=== PATIENT | female | born 1985 | race African-American/Black ===

== ENCOUNTER 2017-02-04 18:31 | Emergency (ER) | payer MEDICAID ==
[~2017-02-04] VITALS: Ht 167.6 cm; Wt 115.0 kg
[~2017-02-04 18:31] MED LIST: DESO1TAB15 PO; IBUP1TAB7 PO; METF-381 PO; TRI NESSA PO
[2017-02-04 18:33] VITALS: BP 124/86; PULSE 76; RESP 18; TEMP 98.6; O2SAT 98
--- NOTE | 2017-02-04 19:41 | PD ---
HPI Chief Complaint: Injury Time Seen by Provider: 19:41 Travel History International Travel<30 days: No Contact w/Intl Traveler<30days: No Traveled to known affect area: No History of Present Illness HPI 31-year-old female came to the emergency room after injuring her left pinky finger when she tripped and try to brace her fall with outstretched hand. Patient says this happened 45 minutes ago. Since then her into finger has been hurting. No history of head injury. Vital signs are stable. [facility] Past Medical History Narrative Medical List of her past medical, surgical, social and family history is reviewed from the nursing note. Cardiovascular Problems: No Diminished Hearing: No Respiratory: No Migraines: Yes ?: Not LMP: 12/2016 : 1 Para: 1 Past Surgical History Gynecologic Surgery: Yes (IUD INSERTED 2006, IN PRESENTLY) Oral Surgery: Yes (TONSILS) Tonsillectomy: Yes Other Surgery: Yes (breast reduction) Social History Alcohol Use: Yes (occas) Tobacco Use: No Substance Use: No Allergies-Medications (Allergen,Severity, Reaction): Coded Allergies: hydromorphone (Unverified Adverse Reaction, Severe, dont like the way it makes me feel, 02/07/17) nifedipine (Unverified Adverse Reaction, Intermediate, jittery during her while taking for migraine proph, 02/06/17) Comments List of her allergies reviewed from the nursing note. Reported Meds & Prescriptions Reported Meds & Active Scripts Active Zofran (Ondansetron HCl) 4 Mg Tab 4 Mg PO Q8HR PRN Ibuprofen 600 Mg Tab 600 Mg PO Q6H PRN Hydrocodone-Acetamin 5-325 mg (Hydrocodone/Acetaminophen) 5 Mg-325 Mg Tablet 5- 325 Mg PO Q6HR PRN Narrative Medication List of her home medications reviewed from the nursing note. Review of Systems Except as stated in HPI: all other systems reviewed are Neg Physical Exam Narrative GENERAL: Awake, alert, moderate distress, obese SKIN: Focused skin assessment warm/dry. HEAD: Atraumatic. Normocephalic. EYES: Pupils equal and round. No scleral icterus. No injection or drainage. ENT: No nasal bleeding or discharge. Mucous membranes pink and moist. NECK: Trachea midline. No JVD. CARDIOVASCULAR: Regular rate and rhythm. No murmur appreciated. RESPIRATORY: No accessory muscle use. Clear to auscultation. Breath sounds equal bilaterally. GASTROINTESTINAL: Abdomen soft, non-tender, nondistended. Hepatic and splenic margins not palpable. MUSCULOSKELETAL: No obvious deformities. No clubbing. No cyanosis. No edema. Left pinky finger is tender to touch in its entirety. Patient is unable to flex it or move it. No significant swelling noticed. NEUROLOGICAL: Awake and alert. No obvious cranial nerve deficits. Motor grossly within normal limits. Normal speech. PSYCHIATRIC: Appropriate mood and affect; insight and judgment normal. Data Data Last Documented VS Orders Orders Hand, Complete ([id number]) (02/04/17 ) Finger ([id number]) (02/04/17 ) Ibuprofen (Motrin) (02/04/17 19:45) Support Splint (02/04/17 20:06) Ed Discharge Order (02/04/17 20:31) Finger Splint (02/04/17 ) [facility] Medical Decision Making Medical Screen Exam Complete: Yes Emergency Medical Condition: Yes Medical Record Reviewed: Yes Differential Diagnosis Finger fracture, metacarpal fracture, sprain Narrative Course 8:09 PM a distal phalanx avulsion fracture is noticed at the base of the phalanx. I've ordered for a finger splint to be applied. Patient will be asked to follow-up with the hand surgeon. Procedures EKG Prior to Arrival: No Diagnosis Primary Impression: Finger fracture Qualified Codes: S62.637A - Displaced fracture of distal phalanx of left little finger, initial encounter for closed fracture Referrals: Milan Sparks MD 1 day Departure Forms: Tests/Procedures, Work Release Enter return to work date: Feb 07, 2017 Additional Instructions: Please call the hand surgeon's office who is name and number been provided to you on this discharge instruction. Keep the splint on at all times and prevented from getting wet. Return to the ER if the condition worsens or any other new concerns. Disposition: 01 DISCHARGE HOME Condition: Stable Laly Smith MD Feb 04, 2017 19:41
[2017-02-04] MEDS ORDERED: IBUPROFEN 800 MG TAB PO ONE (19:45)
--- NOTE | 2017-02-04 20:20 | RADRPT ---
EXAM DATE/TIME: 02/04/2017 19:56 [facility] COMPARISON: No previous studies available for comparison. INDICATIONS : Left fifth digit pain MEDICAL HISTORY : None. SURGICAL HISTORY : None. ENCOUNTER: Initial ACUITY: 1 day PAIN SCORE: 10/10 LOCATION: Left upper extremity FINDINGS: There is fracturing of the proximal posterior base of the fifth distal phalanx best seen on the later al view. The fracture extends into the DIP joint. CONCLUSION: Fracturing of the proximal posterior aspect of the fifth distal phalanx. Patricio Kothari MD on February 04, 2017 at 20:17 Board Certified Radiologist. This report was verified electronically.
--- NOTE | 2017-02-04 20:23 | RADRPT ---
EXAM DATE/TIME: 02/04/2017 19:58 [facility] COMPARISON: No previous studies available for comparison. INDICATIONS : Left fifth digit pain MEDICAL HISTORY : None. SURGICAL HISTORY : None. ENCOUNTER: Initial ACUITY: 1 day PAIN SCORE: 10/10 LOCATION: Left upper extremity FINDINGS: There is a fracture at the proximal posterior base of the fifth distal phalanx extending into the fif th DIP joint. CONCLUSION: Fracture at the posterior proximal base of the fifth distal phalanx. Patricio Kothari MD on February 04, 2017 at 20:20 Board Certified Radiologist. This report was verified electronically.
[2017-02-05] MEDS ORDERED: HYDR-3516 PO (11:43)
[2017-02-05] MEDS ORDERED: IBUP-232 PO (11:45)
[2017-02-08] MEDS ORDERED: ZOFR4TAB PO (14:29)
[2017-02-20] MEDS ORDERED: IBUP-232 PO (17:31)
== END 2017-02-04 20:48 | disposition home or self-care (01) ==
LOC: NEPD 18:31
DX: S62.637A Displaced fracture of distal phalanx of left little finger, initial encounter for closed fracture (principal); W01.0XXA Fall on same level from slipping, tripping and stumbling without subsequent striking against object, initial encounter; Z88.5 Allergy status to narcotic agent; Z88.8 Allergy status to other drugs, medicaments and biological substances
CPT/HCPCS: 73130; 73140; 99283

== ENCOUNTER → 2017-02-07 | Day surgery (SDC) | payer MEDICAID ==
[~2017-02-07] VITALS: Ht 167.6 cm; Wt 113.5 kg
[~2017-02-07] MED LIST changes: +BUPIVACAINE HCL PF 0.5% 30 ML VIAL ONE; +CHLORHEXIDINE GLUCONATE 2 % 1 PACK (2 CLOTHS) TOPICAL PRN; -DESO1TAB15 PO; +DEXAMETHASONE SOD PHOS 4 MG/ML VIAL ONE; +FAMOTIDINE 20 MG/2 ML VIAL ONE; +HYDR-3516 PO; +IBUP-232 PO; -IBUP1TAB7 PO; +LACTATED RINGER'S 1000 ML IV PRN; +LIDOCAINE HCL 2% 50 ML VIAL ONE; -METF-381 PO; +METOCLOPRAMIDE HCL 10 MG/2 ML VIAL ONE; +METOPROLOL TARTRATE 25 MG TAB PO PRN; +MIDAZOLAM HCL 2 MG/2 ML VIAL ONE; +NEOMYCIN/POLYMYXIN 1 ML G.U. IRRIGANT ONE; +POVIDONE IODINE 5% (ANTISEPSIS KIT) 4 APPLICATIONS EACH NARE PRN; +SODIUM CHLORID 0.9% 500 ML IV PRN; -TRI NESSA PO; +ZOFR4TAB PO; +ceFAZolin 1,000 MG/NS 100 ML IV SCH
[2017-02-07 12:58] LABS: HEMATOCRIT 40.7 % (35.0-46.0); MEAN CORPUSCULAR HEMOGLOBIN 27.3 PG (27.0-34.0); MEAN CORPUSCULAR HGB CONC 32.9 % (32.0-36.0); PLATELET COUNT 304 TH/MM3 (150-450); RED CELL DISTRIBUTION WIDTH 13.6 % (11.6-17.2); REVIEW FLAG FINAL; WHITE BLOOD COUNT 7.2 TH/MM3 (4.0-11.0)
[2017-02-07 16:45] VITALS: TEMP 98.6
[2017-02-07 17:00] VITALS: BP 133/78; PULSE 84; RESP 16; O2SAT 97
--- NOTE | 2017-02-08 18:18 | PD.OP ---
Operative Report Date of Surgery: Feb 07, 2017 Preoperative Diagnosis: (1) Mallet deformity of left little finger Postoperative Diagnosis: (1) Mallet deformity of left little finger Procedure: Closed reduction percutaneous pinning of the left small finger distal phalanx fracture Anesthesia: Gen. Surgeon: Milan Medellin Director E Learning(s): None Operation and Findings: After informed consent was obtained the patient was taken to the operating room. All pressure points were padded. Timeout was performed. After appropriate padding, an upper extremity tourniquet was placed on the upper arm. The surgical site was prepped and draped in the usual sterile fashion. The arm was exsanguinated using an Esmarch. The tourniquet was inflated to 250 mmHg. The mini C-arm was brought in. This was used to place a longitudinal 38 K wire in the left small finger distal phalanx in a retrograde fashion. Tip of the K wire was Several millimeters distal to the DIP joint surface. Following this, the K wire was used to flex the DIP joint. This brought the terminal tendon with associated bony fragment as far anteriorly as possible. Under fluoroscopy, a second 38 K wire was then placed into the head of the second phalanx in a blocking fashion. Following this the DIP joint was brought into full extension. Reduction was checked under fluoroscopy. After adequate reduction confirmed fluoroscopically, the K wire in the distal phalanx was then driven into the head of the second phalanx. Adduction was then again confirmed fluoroscopically under multiple views. Pin caps were placed. Xeroform was placed around the pin sites. The finger hand and forearm were appropriately padded and placed in a plaster splint. The tourniquet was let down at 31 minutes. Patient was awoken from anesthesia and arrived stable and doing well to the PACU. All needle sponge and instrument counts were correct 2. Milan Medellin MD Feb 08, 2017 18:18
== END | disposition home or self-care (01) ==
LOC: PHSDC 11:54
PROVIDERS: ATTEND Student in an Organized Health Care Education/Training Program
DX: S62.637A Displaced fracture of distal phalanx of left little finger, initial encounter for closed fracture (principal)
CPT/HCPCS: 01820; 26756; 36415; 76000; 85027; J1100; J2250; J2765